=== PATIENT | female | born 1935 ===

== ENCOUNTER 2022-06-26 06:00 | Outpatient (RCR) | payer MEDICARE, SELFPAY | END 2022-06-27 23:59 | disposition home or self-care (01) | LOC: GPT 06:00 | PROVIDERS: Visit Provider Nurse Practitioner Family | DX: M62.838 Other muscle spasm (principal) | CPT/HCPCS: 97110; 97140; 97161 ==

== ENCOUNTER 2022-06-28 06:00 | Outpatient (RCR) | payer MEDICARE, SELFPAY | END 2022-07-27 23:59 | disposition home or self-care (01) | LOC: GPT 06:00 | PROVIDERS: Visit Provider Nurse Practitioner Family | DX: M62.838 Other muscle spasm (principal) | CPT/HCPCS: 97110; 97112; 97140; 97530 ==

== ENCOUNTER 2022-07-28 06:00 | Outpatient (RCR) | payer MEDICARE, SELFPAY | END 2022-08-27 23:59 | disposition home or self-care (01) | LOC: GPT 06:00 | PROVIDERS: Visit Provider Nurse Practitioner Family | DX: M62.838 Other muscle spasm (principal) | CPT/HCPCS: 97110; 97140; 97164; 97530 ==

== ENCOUNTER 2022-09-17 19:58 | Outpatient (RCR) | payer MEDICARE, SELFPAY | END 2022-09-26 23:59 | disposition home or self-care (01) | LOC: GPT 19:58 | PROVIDERS: Visit Provider Nurse Practitioner Family | DX: M62.838 Other muscle spasm (principal) | CPT/HCPCS: 97110; 97112; 97140; 97530 ==

== ENCOUNTER 2022-09-27 06:00 | Outpatient (RCR) | payer MEDICARE, SELFPAY | END 2022-10-09 23:59 | disposition home or self-care (01) | LOC: GPT 06:00 | PROVIDERS: Visit Provider Nurse Practitioner Family | DX: M62.838 Other muscle spasm (principal) | CPT/HCPCS: 97110 ==